=== PATIENT | female | born 1950 | race American Indian/Alaskan Native ===

== ENCOUNTER 2020-02-24 16:44 | Observation (INO) | payer MEDICARE, OTHER ==
--- NOTE | 2020-02-24 16:47 | Emergency Department Report ---
Blank Doc - Documentation Documentation: 69-year-old female that was sent by box truck owner operator for chest pain with radiation to left arm. This initial assessment/diagnostic orders/clinical plan/treatment(s) is/are subject to change based on patient's health status, clinical progression and re- assessment by fellow clinical providers in the ED. Further treatment and workup at subsequent clinical providers discretion. Patient/guardians urged not to elope from the ED as their condition may be serious if not clinically assessed and managed. Initial orders include: 1- Patient sent to MAIN ED for further evaluation and treatment 2- cardiac workup
[2020-02-24 17:17] LABS: Basophils % (Auto) 0.4 % (0.0-1.8); Eosinophils # (Auto) 0.3 K/mm3 (0.0-0.4); Eosinophils % (Auto) 2.1 % (0.0-4.3); Hematocrit 39.8 % (30.3-42.9); Hemoglobin 12.9 gm/dl (10.1-14.3); Lymphocytes # (Auto) 3.4 K/mm3 (1.2-5.4); Lymphocytes % (Auto) 26.6 % (13.4-35.0); Mean Corpuscular HGB Conc 32 % (30-34); Mean Corpuscular Volume 85 fl (79-97); Monocytes # (Auto) 0.7 K/mm3 (0.0-0.8); Monocytes % (Auto) 5.9 % (0.0-7.3); Platelet Count 521 K/mm3 (140-440); Red Cell Distribution Width 14.4 % (13.2-15.2)
[2020-02-24 17:25] LABS: INR 0.96 (0.87-1.13); Partial Thromboplastin Time 28.7 Sec. (24.2-36.6)
--- NOTE | 2020-02-24 17:36 | XRay Report ---
CHEST 2 VIEWS INDICATION / CLINICAL INFORMATION: Chest Pain. Intermittent shortness of breath. History of coronary artery disease, status post stentin g, hypertension and hyperlipidemia. COMPARISON: None available. FINDINGS: SUPPORT DEVICES: None. HEART / MEDIASTINUM: No significant abnormality. LUNGS / PLEURA: No significant pulmonary or pleural abnormality. No pneumothorax. ADDITIONAL FINDINGS: No significant additional findings. IMPRESSION: 1. No acute abnormality of the chest. Signer Name: Berny Carnes MD Signed: 02/24/2020 5:32 PM Workstation Name: [id number]
[2020-02-24 17:39] LABS: Alanine Aminotransferase 8 units/L (7-56); Albumin 4.2 g/dL (3.9-5); BUN/Creatinine Ratio 29; Blood Urea Nitrogen 32 mg/dL (7-17); Calcium 10.3 mg/dL (8.4-10.2); Hemolysis Index 0
--- NOTE | 2020-02-24 22:41 | Emergency Department Report ---
ED Chest Pain HPI - General Chief Complaint: Chest Pain Stated Complaint: CHEST PAIN PUI?: No Time Seen by Provider: 02/24/20 22:25 Source: patient Mode of arrival: Ambulatory Limitations: No Limitations - History of Present Illness Initial Comments: Patient is a 69-year-old female who presents emergency room with complaints of chest pain. Patient states her chest pain started yesterday. Patient states she woke up this morning with chest pain and went to her motor racer. Patient dates her motor racer Dr. White sent her here for evaluation. Patient states her chest pain is a 3 out of 10. Patient states the chest pain is worse with exertion and better with rest. Patient states that when she exerts herself she also gets short of breath. Patient states her shortness of breath resolves with rest. Patient states she has history of CAD With cardiac stents, hypertension hyperlipidemia and diabetes. Patient states she is on Plavix and aspirin. Patient denies recent travel. Patient denies recent international travel. Patient denies exposure to the novel coronavirus. Patient denies sick contacts. Patient denies fever and chills. Patient denies cough. Patient denies diarrhea. Patient denies coming in contact with anybody with symptoms of the novel coronavirus. MD Complaint: chest pain -: Sudden Onset: during rest Pain Location: substernal, left chest Pain Radiation: none Severity: mild, moderate Severity scale (0 -10): 3 Quality: sharp Consistency: intermittent Improves With: rest Worsens With: exertion re: dyspnea. denies: nausea, vomting, diaphoresis, sense of impending doom Other Symptoms: denies: cough, fever, syncope, rash, acid taste in mouth, leg swelling, palpitations, burping Treatments Prior to Arrival: none Aspirin use within the Past 7 Days: (1) Yes - Related Data On Oral Contraceptives: No Home Medications Medication Instructions Recorded Confirmed Last Taken Aspirin [Aspirin BABY CHEW TAB] 81 mg PO DAILY 04/27/13 05/11/13 05/10/13 81 mg Clopidogrel Bisulfate [Clopidogrel] 75 mg PO DAILY 04/27/13 05/11/13 05/10/13 75 mg Insulin NPH/Regular [NovoLIN 70/30] 40 units SQ BID 04/27/13 05/11/13 05/10/13 40 units Isosorbide Mononitrate [Isosorbide 60 mg PO DAILY 04/27/13 05/11/13 05/10/13 Mononitrate ER (IMDUR)] 60 mg Metoprolol [Lopressor TAB] 100 mg PO BID 04/27/13 05/11/13 05/10/13 100 mg NIFEdipine [NIFEdipine ER] 60 mg PO DAILY 04/27/13 05/11/13 05/10/13 60 mg Nitroglycerin [Nitrostat] 0.4 mg SL PRN PRN 04/27/13 05/11/13 05/10/13 Simvastatin 40 mg PO HS 04/27/13 05/11/13 05/10/13 40 mg lisinopriL [Lisinopril] 40 mg PO DAILY 04/27/13 05/11/13 05/10/13 40 mg Previous Rx's Medication Instructions Recorded Last Taken Type Ranolazine [Ranexa] 500 mg PO BID #60 tab.er.12h 05/12/13 Unknown Rx Allergies Allergy/AdvReac Type Severity Reaction Status Date / Time No Known Allergies Allergy Unverified 04/27/13 07:31 Heart Score - HEART Score History: Moderately suspicious EKG: Non-specific Age: > 65 Risk factors: > 3 risk factors or hx of atherosclerotic disease Troponin: < normal limit HEART Score: 6 ED Review of Systems ROS: Stated complaint: CHEST PAIN Other details as noted in HPI Constitutional: denies: chills, fever Eyes: denies: eye pain, eye discharge, vision change ENT: denies: ear pain, throat pain Respiratory: denies: cough, shortness of breath, wheezing Cardiovascular: as per HPI, chest pain, dyspnea on exertion. denies: palpitatio ns Endocrine: no symptoms reported Gastrointestinal: denies: abdominal pain, nausea, diarrhea Genitourinary: denies: urgency, dysuria, discharge Musculoskeletal: denies: back pain, joint swelling, arthralgia Skin: denies: rash, lesions Neurological: denies: headache, weakness, paresthesias Psychiatric: denies: anxiety, depression Hematological/Lymphatic: denies: easy bleeding, easy bruising ED Past Medical Hx - Past Medical History Previous Medical History?: Yes Hx Hypertension: Yes Hx Congestive Heart Failure: No Hx Diabetes: Yes Hx Arthritis: Yes Hx Asthma: No Hx COPD: No Hx HIV: No Additional medical history: high cholesterol - Surgical History Past Surgical History?: Yes Hx Coronary Stent: Yes - Family History Family history: no significant - Social History Smoking Status: Former Smoker Substance Use Type: None - Medications Home Medications: Home Medications Medication Instructions Recorded Confirmed Last Taken Type Aspirin [Aspirin BABY CHEW TAB] 81 mg PO DAILY 04/27/13 05/11/13 05/10/13 Histor y 81 mg Clopidogrel Bisulfate [Clopidogrel] 75 mg PO DAILY 04/27/13 05/11/13 05/10/13 History 75 mg Insulin NPH/Regular [NovoLIN 70/30] 40 units SQ BID 04/27/13 05/11/13 05/10/13 History 40 units Isosorbide Mononitrate [Isosorbide 60 mg PO DAILY 04/27/13 05/11/13 05/10/13 His tory Mononitrate ER (IMDUR)] 60 mg Metoprolol [Lopressor TAB] 100 mg PO BID 04/27/13 05/11/13 05/10/13 History 100 mg NIFEdipine [NIFEdipine ER] 60 mg PO DAILY 04/27/13 05/11/13 05/10/13 History 60 mg Nitroglycerin [Nitrostat] 0.4 mg SL PRN PRN 04/27/13 05/11/13 05/10/13 History Simvastatin 40 mg PO HS 04/27/13 05/11/13 05/10/13 History 40 mg lisinopriL [Lisinopril] 40 mg PO DAILY 04/27/13 05/11/13 05/10/13 History 40 mg Ranolazine [Ranexa] 500 mg PO BID #60 tab.er.12h 05/12/13 Unknown Rx ED Physical Exam - General Limitations: No Limitations General appearance: alert, in no apparent distress - Head Head exam: Present: atraumatic, normocephalic - Eye Eye exam: Present: normal appearance - ENT ENT exam: Present: mucous membranes moist - Neck Neck exam: Present: normal inspection - Respiratory Respiratory exam: Present: normal lung sounds bilaterally. Absent: respiratory distress - Cardiovascular Cardiovascular Exam: Present: regular rate, normal rhythm. Absent: systolic murmur, diastolic murmur, rubs, gallop - GI/Abdominal GI/Abdominal exam: Present: soft, normal bowel sounds - Rectal Rectal exam: Present: deferred - Extremities Exam Extremities exam: Present: normal inspection - Back Exam Back exam: Present: normal inspection - Neurological Exam Neurological exam: Present: alert, oriented X3 - Psychiatric Psychiatric exam: Present: normal affect, normal mood - Skin Skin exam: Present: warm, dry, intact, normal color. Absent: rash ED Course Vital Signs 02/24/20 16:51 Temperature 98.7 F Pulse Rate 77 Respiratory 18 Rate Blood Pressure 157/77 [Right] O2 Sat by Pulse 97 Oximetry - Reevaluation(s) Reevaluation #1: I discussed all results with patient. I discussed plan of care with patient. Patient agrees with plan of care and admission. Patient to be admitted to the hospitalist service. 02/24/20 22:58 - Consultations Consultation #1: Hospitalist consulted for admission. Hospitalist to admit patient. 02/24/20 22:59 WILLI score - Willi Score Age > 65: (1) Yes Aspirin use within the Past 7 Days: (1) Yes 3 or more CAD Risk Factors: (1) Yes 2 or more Angina events in past 24 hrs: (1) Yes Known CAD with more than 50% Stenosis: (0) No Elevated Cardiac Markers: (0) No ST Deviation Greater than 0.5mm: (0) No WILLI Score: 4 ED Medical Decision Making - Lab Data Result diagrams: 02/24/20 16:51 02/24/20 16:51 - EKG Data -: EKG Interpreted by Me EKG shows normal: sinus rhythm, axis, intervals, QRS complexes, ST-T waves Rate: normal - Radiology Data Radiology results: report reviewed, image reviewed interpreted by me: Chest x-ray: No pneumonia, no pneumothorax, no foreign body, no osseous finding s, no acute findings CHEST 2 VIEWS INDICATION / CLINICAL INFORMATION: Chest Pain. Intermittent shortness of breath. History of coronary artery disease, status post stenting, hypertension and hyperlipidemia. COMPARISON: None available. FINDINGS: SUPPORT DEVICES: None. HEART / MEDIASTINUM: No significant abnormality. LUNGS / PLEURA: No significant pulmonary or pleural abnormality. No pneumothorax. ADDITIONAL FINDINGS: No significant additional findings. IMPRESSION: 1. No acute abnormality of the chest. - Medical Decision Making Patient is a 69-year-old female that presents emergency room with complaints of chest pain and dyspnea on exertion. Patient states her symptoms started yesterday. Patient was sent here by her motor racer. Patient has a significant cardiac history. Patient has an elevated WILLI and heart score. Patient admitted to the hospital service for further evaluation and treatment and rule out ACS. Patient's motor racer consulted. Patient's labs are essentially unremarkable. Patient's troponins are negative. Patient's EKG does not show a STEMI. Patient's chest x-ray is negative. - Differential Diagnosis ACS, chest pain, CAD, hypertension, DOZIER Critical Care Time: Yes Critical care time in (mins) excluding proc time.: 35 Critical care attestation.: If time is entered above; I have spent that time in minutes in the direct care of this critically ill patient, excluding procedure time. Critical Care Time: 35 minutes ED Disposition Clinical Impression: DOZIER (dyspnea on exertion) CAD (coronary artery disease) Qualifiers: Coronary Disease-Associated Artery/Lesion type: [place] artery [place] vs. transplanted heart: [place] heart Associated angina: without angina Qualified Code(s): I25.10 - Atherosclerotic heart disease of [place] coronary artery without angina pectoris Chest pain Qualifiers: Chest pain type: unspecified Qualified Code(s): R07.9 - Chest pain, unspecified Disposition: DC-09 OP ADMIT IP TO THIS HOSP Is pt being admited?: Yes Does the pt Need Aspirin: No Condition: Critical Time of Disposition: 23:05
[2020-02-25] MEDS ORDERED: MORPHINE 2 MG/1 ML INJ IV PRN (00:06)
[2020-02-25] MEDS ORDERED: ONDANSETRON 4 MG/2 ML INJ IV PRN (00:07)
[2020-02-25] MEDS ORDERED: ACETAMINOPHEN 325 MG TAB PO PRN (00:07)
[2020-02-25] MEDS ORDERED: NITROGLYCERIN 0.4 MG TAB SUBL SL PRN ×2 (00:08→18:22)
[2020-02-25] MEDS: HEPARIN 5,000 UNIT/1 ML VIAL SUB-Q SCH ×3 (00:28→22:09)
[2020-02-25] MEDS ORDERED: HEPARIN 5,000 UNIT/1 ML VIAL ONE (00:29)
[2020-02-25] MEDS: NITROGLYCERIN 2% OINT 1 GM TP SCH ×4 (05:04→17:45)
--- NOTE | 2020-02-25 07:05 | History and Physical Report ---
History of Present Illness Date of examination: 02/24/20 Date of admission: 02/24/20 22:45 Chief complaint: Chief complaint is chest pain History of present illness: History of presenting illness, patient is a 69-year-old female who started having sharp chest pain located in the precordial area and radiating to the left upper extremity, pain started the night prior to presentation and was associated with shortness of breath ,diaphoresis,nausea or vomiting, but no history of cough, fever, chills or body aches and patient went to her doctor of optometry office for where she was sent to the emergency room for evaluation. Past History Past Medical History: CAD, diabetes, hypertension, hyperlipidemia Past Surgical History: Other (STENT) Social history: no significant social history Family history: no significant family history Medications and Allergies Allergies Allergy/AdvReac Type Severity Reaction Status Date / Time No Known Allergies Allergy Unverified 04/27/13 07:31 Home Medications Medication Instructions Recorded Confirmed Last Taken Type Aspirin [Aspirin BABY CHEW TAB] 81 mg PO DAILY 04/27/13 02/24/20 05/10/13 History 81 mg Clopidogrel Bisulfate [Clopidogrel] 75 mg PO DAILY 04/27/13 02/24/20 05/10/13 History 75 mg Insulin NPH/Regular [NovoLIN 70/30] 40 units SQ BID 04/27/13 02/24/20 05/10/13 History 40 units Isosorbide Mononitrate [Isosorbide 60 mg PO DAILY 04/27/13 02/24/20 05/10/13 History Mononitrate ER (IMDUR)] 60 mg NIFEdipine [NIFEdipine ER] 60 mg PO DAILY 04/27/13 02/24/20 05/10/13 History 60 mg Nitroglycerin [Nitrostat] 0.4 mg SL PRN PRN 04/27/13 02/24/20 05/10/13 History Simvastatin 40 mg PO HS 04/27/13 02/24/20 05/10/13 History 40 mg lisinopriL [Lisinopril] 40 mg PO DAILY 04/27/13 02/24/20 05/10/13 History 40 mg Active Meds: Active Medications Acetaminophen (Tylenol) 650 mg PO Q4H PRN PRN Reason: Headache Aspirin (Aspirin) 325 mg PO QDAY [facility] Heparin Sodium (Porcine) (Heparin) 5,000 unit SUB-Q Q12HR [facility] Last Admin: 02/25/20 00:28 Dose: 5,000 unit Documented by: Morphine Sulfate (Morphine) 2 mg IV Q4H PRN PRN Reason: Pain, Moderate (4-6) Nitroglycerin (Nitro-Bid 2%) 0.5 inch TP QIDNTG [facility]; Protocol Last Admin: 02/25/20 05:04 Dose: 0.5 inch Documented by: Nitroglycerin (Nitrostat) 0.4 mg SL .Q5MIN PRN PRN Reason: Chest Pain Ondansetron HCl (Zofran) 4 mg IV Q8H PRN PRN Reason: Nausea And Vomiting Pneumococcal Polyvalent Vaccine (Pneumovax 23) 0.5 ml IM .ONCE ONE Stop: 02/25/20 12:01 Review of Systems Constitutional: sweats, no weight loss, no weight gain, no fever, no chills, no night sweats, no anorexia, no fatigue, no weakness, no malaise Eyes: bilateral: other (NO BILATERAL EYE SYMPTOM) Ears, nose, mouth and throat: no deferred, no ear pain, no ear discharge, no decreased hearing, no nose pain, no nasal congestion, no nasal discharge, no sinus pressure, no dental pain, no mouth pain, no dysphagia, no hoarseness, no sore throat, no swelling in mouth, no swelling in throat, no headache Breasts: deferred Cardiovascular: chest pain, shortness of breath, no orthopnea, no palpitations, no rapid/irregular heart beat, no edema, no syncope, no lightheadedness Respiratory: shortness of breath, no cough, no cough with sputum, no hemoptysis, no dyspnea on exertion, no congestion, no wheezing, no pleurisy, no pain Gastrointestinal: nausea, vomiting, no abdominal pain, no diarrhea, no constipation, no change in bowel habits, no hematemesis, no coffee ground emesis, no loss of appetite Genitourinary Female: no dysmenorrhea, no pelvic pain, no flank pain, no menorrhagia, no dysuria, no urinary frequency, no urgency, no stress incontinence, no post void dribbling, no incomplete emptying Rectal: no pain Musculoskeletal: no neck stiffness, no neck pain, no low back pain Integumentary: no rash, no pruritis, no redness, no sores, no wounds, no jaundice, no boils, no bullae, no lesions, no darkening of skin, no depigmentation, no acne, no dryness Neurological: no head injury, no transient paralysis, no paralysis, no weakness, no parathesias, no numbness, no tingling, no seizures, no syncope, no tremors, no headaches, no migraines, no confusion Psychiatric: no anxiety Endocrine: no cold intolerance, no heat intolerance, no polyphagia, no excessive thirst, no polydipsia, no polyuria, no nocturia, no excessive sweating, no palpatations Hematologic/Lymphatic: no easy bruising, no easy bleeding, no lymphadenopathy Exam - Constitutional Vitals: Temp Pulse Resp BP Pulse Ox 98.0 F 68 18 144/67 100 02/25/20 03:52 02/25/20 03:52 02/25/20 03:52 02/25/20 03:52 02/25/20 03:52 General appearance: Present: no acute distress - EENT Eyes: Present: PERRL, EOM intact ENT: hearing intact, clear oral mucosa - Neck Neck: Present: supple, normal ROM - Respiratory Respiratory effort: normal - Cardiovascular Rhythm: regular Heart Sounds: Present: S1 & S2. Absent: gallop, systolic murmur, diastolic murmur, click - Extremities Extremities: no ischemia, No edema Peripheral Pulses: within normal limits - Abdominal General gastrointestinal: Present: soft, non-tender, non-distended. Absent: tender, distended, rigid, hepatomegaly, splenomegaly Female genitourinary: Present: deferred - Rectal Rectal Exam: deferred - Integumentary Integumentary: Present: clear, warm. Absent: dry, jaundice, rash - Musculoskeletal Musculoskeletal: strength equal bilaterally - Psychiatric Psychiatric: appropriate mood/affect HEART Score - HEART Score EKG: Non-specific Age: > 65 Risk factors: > 3 risk factors or hx of atherosclerotic disease Troponin: Troponin T < 0.010 ng/mL (0.00-0.029) 02/24/20 19:57 Troponin: < normal limit - Critical Actions Critical Actions: 4-6 pts:12-16.6% risk of adverse cardiac event. Should be admitted (PATIENT UNDERGOING WORK UP FOR CHEST PAIN) Results - Labs CBC & Chem 7: 02/24/20 16:51 02/24/20 16:51 Labs: Laboratory Last Values WBC 12.7 K/mm3 (4.5-11.0) H 02/24/20 16:51 RBC 4.70 M/mm3 (3.65-5.03) 02/24/20 16:51 Hgb 12.9 gm/dl (10.1-14.3) 02/24/20 16:51 Hct 39.8 % (30.3-42.9) 02/24/20 16:51 MCV 85 fl (79-97) 02/24/20 16:51 MCH 28 pg (28-32) 02/24/20 16:51 MCHC 32 % (30-34) 02/24/20 16:51 RDW 14.4 % (13.2-15.2) 02/24/20 16:51 Plt Count 521 K/mm3 (140-440) H 02/24/20 16:51 Lymph % (Auto) 26.6 % (13.4-35.0) 02/24/20 16:51 [place] % (Auto) 5.9 % (0.0-7.3) 02/24/20 16:51 Eos % (Auto) 2.1 % (0.0-4.3) 02/24/20 16:51 Baso % (Auto) 0.4 % (0.0-1.8) 02/24/20 16:51 Lymph # (Auto) 3.4 K/mm3 (1.2-5.4) 02/24/20 16:51 [place] # (Auto) 0.7 K/mm3 (0.0-0.8) 02/24/20 16:51 Eos # (Auto) 0.3 K/mm3 (0.0-0.4) 02/24/20 16:51 Baso # (Auto) 0.0 K/mm3 (0.0-0.1) 02/24/20 16:51 Seg Neutrophils % 65.0 % (40.0-70.0) 02/24/20 16:51 Seg Neutrophils # 8.3 K/mm3 (1.8-7.7) H 02/24/20 16:51 PT 12.9 Sec. (12.2-14.9) 02/24/20 16:51 INR 0.96 (0.87-1.13) 02/24/20 16:51 APTT 28.7 Sec. (24.2-36.6) 02/24/20 16:51 Sodium 140 mmol/L (137-145) 02/24/20 16:51 Potassium 4.2 mmol/L (3.6-5.0) 02/24/20 16:51 Chloride 102.2 mmol/L (98-107) 02/24/20 16:51 Carbon Dioxide 22 mmol/L (22-30) 02/24/20 16:51 Anion Gap 20 mmol/L 02/24/20 16:51 BUN 32 mg/dL (7-17) H 02/24/20 16:51 Creatinine 1.1 mg/dL (0.6-1.2) 02/24/20 16:51 Estimated GFR 60 ml/min 02/24/20 16:51 BUN/Creatinine Ratio 29 % 02/24/20 16:51 Glucose 156 mg/dL (65-100) H 02/24/20 16:51 Calcium 10.3 mg/dL (8.4-10.2) H 02/24/20 16:51 Magnesium 2.10 mg/dL (1.7-2.3) 02/24/20 16:51 Total Bilirubin 0.30 mg/dL (0.1-1.2) 02/24/20 16:51 AST 13 units/L (5-40) 02/24/20 16:51 ALT 8 units/L (7-56) 02/24/20 16:51 Alkaline Phosphatase 134 units/L (35-129) H 02/24/20 16:51 Troponin T < 0.010 ng/mL (0.00-0.029) 02/24/20 19:57 Total Protein 7.9 g/dL (6.3-8.2) 02/24/20 16:51 Albumin 4.2 g/dL (3.9-5) 02/24/20 16:51 Albumin/Globulin Ratio 1.1 % 02/24/20 16:51 Jacobs/IV: Voiding Method Toilet IV Catheter Type [Left Wrist] Peripheral IV Assessment and Plan - Patient Problems (1) Chest pain Current Visit: Yes Status: Acute Qualifiers: Chest pain type: unspecified Qualified Code(s): R07.9 - Chest pain, unspecified Plan to address problem: 1. TELEMETRY OBSERVATION 2. SERIAL CARDIAC ENZYMES 3. CARDIOLOGY CONSULT 4. I.V MORPHINE FOR PAIN 5. I.V ZOFRAN FOR NAUSEA AND VOMITING 6. NITROPASTE 7. ASPIRIN PO 8. TYLENOL FOR HEADACHE AND FEVER 9. SUBCUT HEPARIN FOR DVT PROPHYLAXIS
[2020-02-25 07:19] LABS: Creatine Kinase MB 1.7 ng/mL (0.0-4.0)
--- NOTE | 2020-02-25 08:46 | Consultation ---
<LYNDON DILLARD - Last Filed: 02/25/20 10:00> History of Present Illness Consult date: 02/25/20 Consult reason: chest pain History of present illness: Patient is a 69-year old woman with history of coronary artery disease. A cardiac cath in 2012 showed patient stents in proximal and mid LAD and patient mid Cx stent. Recommended medical therapy for small vessel disease. Serial stress thallium stress test, latest done in 2018, were negative. Patient was sent from our office and admitted with chest pain. Denies chest pain on exertion. Denies unusual shortness of breath. Chest x-ray was negative. Troponin T measurements are normal thus far. An ECG done shows sinus rhythm with non-specific Twave abnormalities. Past History Past Medical History: CAD, diabetes, hypertension, hyperlipidemia Social history: no significant social history Family history: no significant family history Medications and Allergies Allergies Allergy/AdvReac Type Severity Reaction Status Date / Time No Known Allergies Allergy Unverified 04/27/13 07:31 Home Medications Medication Instructions Recorded Confirmed Last Taken Type Aspirin [Aspirin BABY CHEW TAB] 81 mg PO DAILY 04/27/13 02/24/20 05/10/13 Histo ry 81 mg Clopidogrel Bisulfate [Clopidogrel] 75 mg PO DAILY 04/27/13 02/24/20 05/10/13 History 75 mg Insulin NPH/Regular [NovoLIN 70/30] 40 units SQ BID 04/27/13 02/24/20 05/10/13 History 40 units Isosorbide Mononitrate [Isosorbide 60 mg PO DAILY 04/27/13 02/24/20 05/10/13 Hi story Mononitrate ER (IMDUR)] 60 mg NIFEdipine [NIFEdipine ER] 60 mg PO DAILY 04/27/13 02/24/20 05/10/13 History 60 mg Nitroglycerin [Nitrostat] 0.4 mg SL PRN PRN 04/27/13 02/24/20 05/10/13 History Simvastatin 40 mg PO HS 04/27/13 02/24/20 05/10/13 History 40 mg lisinopriL [Lisinopril] 40 mg PO DAILY 04/27/13 02/24/20 05/10/13 History 40 mg Active Meds: Active Medications Acetaminophen (Tylenol) 650 mg PO Q4H PRN PRN Reason: Headache Aspirin (Aspirin) 325 mg PO QDAY DB Heparin Sodium (Porcine) (Heparin) 5,000 unit SUB-Q Q12HR [facility] Last Admin: 02/25/20 00:28 Dose: 5,000 unit Documented by: Morphine Sulfate (Morphine) 2 mg IV Q4H PRN PRN Reason: Pain, Moderate (4-6) Nitroglycerin (Nitro-Bid 2%) 0.5 inch TP QIDNTG [facility]; Protocol Last Admin: 02/25/20 05:04 Dose: 0.5 inch Documented by: Nitroglycerin (Nitrostat) 0.4 mg SL .Q5MIN PRN PRN Reason: Chest Pain Ondansetron HCl (Zofran) 4 mg IV Q8H PRN PRN Reason: Nausea And Vomiting Pneumococcal Polyvalent Vaccine (Pneumovax 23) 0.5 ml IM .ONCE ONE Stop: 02/25/20 12:01 Physical Examination Vital Signs Temp Pulse Resp BP Pulse Ox 98.7 F 77 18 157/77 97 02/24/20 16:51 02/24/20 16:51 02/24/20 16:51 02/24/20 16:51 02/24/20 16:51 General appearance: no acute distress HEENT: Positive: PERRL Neck: Positive: trachea midline Cardiac: Positive: Reg Rate and Rhythm Results 02/24/20 16:51 02/24/20 16:51 Cardiac Enzymes 02/24/20 02/25/20 Range/Units 16:51 05:59 AST 13 (5-40) units/L CK-MB (CK-2) 1.7 (0.0-4.0) ng/mL Coagulation 02/24/20 Range/Units 16:51 PT 12.9 (12.2-14.9) Sec. INR 0.96 (0.87-1.13) APTT 28.7 (24.2-36.6) Sec. CBC 02/24/20 Range/Units 16:51 WBC 12.7 H (4.5-11.0) K/mm3 RBC 4.70 (3.65-5.03) M/mm3 Hgb 12.9 (10.1-14.3) gm/dl Hct 39.8 (30.3-42.9) % Plt Count 521 H (140-440) K/mm3 Lymph # (Auto) 3.4 (1.2-5.4) K/mm3 [place] # (Auto) 0.7 (0.0-0.8) K/mm3 Eos # (Auto) 0.3 (0.0-0.4) K/mm3 Baso # (Auto) 0.0 (0.0-0.1) K/mm3 Comprehensive Metabolic Panel 02/24/20 Range/Units 16:51 Sodium 140 (137-145) mmol/L Potassium 4.2 (3.6-5.0) mmol/L Chloride 102.2 (98-107) mmol/L Carbon Dioxide 22 (22-30) mmol/L BUN 32 H (7-17) mg/dL Creatinine 1.1 (0.6-1.2) mg/dL Glucose 156 H (65-100) mg/dL Calcium 10.3 H (8.4-10.2) mg/dL AST 13 (5-40) units/L ALT 8 (7-56) units/L Alkaline Phosphatase 134 H (35-129) units/L Total Protein 7.9 (6.3-8.2) g/dL Albumin 4.2 (3.9-5) g/dL Assessment and Plan - Patient Problems (1) Chest pain Current Visit: Yes Status: Acute Qualifiers: Plan to address problem: Further ischemic evaluation with cardiac catheterization and diagnostic coronary angiography (2) CAD (coronary artery disease) Current Visit: Yes Status: Chronic Qualifiers: <HARSHA FONG - Last Filed: 02/25/20 10:31> Medications and Allergies Active Meds: Active Medications Acetaminophen (Tylenol) 650 mg PO Q4H PRN PRN Reason: Headache Aspirin (Aspirin) 325 mg PO QDAY [facility] Heparin Sodium (Porcine) (Heparin) 5,000 unit SUB-Q Q12HR [facility] Last Admin: 02/25/20 00:28 Dose: 5,000 unit Documented by: Morphine Sulfate (Morphine) 2 mg IV Q4H PRN PRN Reason: Pain, Moderate (4-6) Nitroglycerin (Nitro-Bid 2%) 0.5 inch TP QIDNTG [facility]; Protocol Last Admin: 02/25/20 05:04 Dose: 0.5 inch Documented by: Nitroglycerin (Nitrostat) 0.4 mg SL .Q5MIN PRN PRN Reason: Chest Pain Ondansetron HCl (Zofran) 4 mg IV Q8H PRN PRN Reason: Nausea And Vomiting Pneumococcal Polyvalent Vaccine (Pneumovax 23) 0.5 ml IM .ONCE ONE Stop: 02/25/20 12:01 Physical Examination Vital Signs Temp Pulse Resp BP Pulse Ox 98.7 F 77 18 157/77 97 02/24/20 16:51 02/24/20 16:51 02/24/20 16:51 02/24/20 16:51 02/24/20 16:51 Results 02/24/20 16:51 02/24/20 16:51 Cardiac Enzymes 02/24/20 02/25/20 Range/Units 16:51 05:59 AST 13 (5-40) units/L CK-MB (CK-2) 1.7 (0.0-4.0) ng/mL Coagulation 02/24/20 Range/Units 16:51 PT 12.9 (12.2-14.9) Sec. INR 0.96 (0.87-1.13) APTT 28.7 (24.2-36.6) Sec. CBC 02/24/20 Range/Units 16:51 WBC 12.7 H (4.5-11.0) K/mm3 RBC 4.70 (3.65-5.03) M/mm3 Hgb 12.9 (10.1-14.3) gm/dl Hct 39.8 (30.3-42.9) % Plt Count 521 H (140-440) K/mm3 Lymph # (Auto) 3.4 (1.2-5.4) K/mm3 [place] # (Auto) 0.7 (0.0-0.8) K/mm3 Eos # (Auto) 0.3 (0.0-0.4) K/mm3 Baso # (Auto) 0.0 (0.0-0.1) K/mm3 Comprehensive Metabolic Panel 02/24/20 Range/Units 16:51 Sodium 140 (137-145) mmol/L Potassium 4.2 (3.6-5.0) mmol/L Chloride 102.2 (98-107) mmol/L Carbon Dioxide 22 (22-30) mmol/L BUN 32 H (7-17) mg/dL Creatinine 1.1 (0.6-1.2) mg/dL Glucose 156 H (65-100) mg/dL Calcium 10.3 H (8.4-10.2) mg/dL AST 13 (5-40) units/L ALT 8 (7-56) units/L Alkaline Phosphatase 134 H (35-129) units/L Total Protein 7.9 (6.3-8.2) g/dL Albumin 4.2 (3.9-5) g/dL Assessment and Plan PT IS EXPERIENCING CP AT REST SUSPICIOUS FOR UNSTABLE ANGINA STRESS TESTING COULD BE RISKY. RECOMMEND CATH GIVEN THE Hx OF CAD WITH CP AT REST PT AGREES TO THE PROCEDURE
[2020-02-25] MEDS ORDERED: ASPIRIN 325 MG TAB PO SCH (10:00)
[2020-02-25] MEDS ORDERED: fentaNYL 100 MCG/2 ML INJ ONE (10:12)
[2020-02-25] MEDS ORDERED: LIDOCAINE (2%) 20 MG/1 ML VIAL 20 ML MDV INFILTRATI ONE (10:12)
[2020-02-25] MEDS ORDERED: MIDAZOLAM 2 MG/2 ML INJ ONE (10:12)
[2020-02-25] MEDS ORDERED: HEPARIN/NS 5000 UNIT/500ML 1,000 ML IR ONE (10:12)
[2020-02-25] MEDS ORDERED: HEPARIN 10,000 UNITS/10 ML VIAL ONE (10:13)
[2020-02-25] MEDS ORDERED: NITROGLYCERIN SYRINGE 0 ML ONE (10:14)
[2020-02-25] MEDS ORDERED: VERAPAMIL 5 MG/2 ML INJ ONE (10:14)
[2020-02-25] MEDS ORDERED: SODIUM CHLORIDE 0.9% 500 ML 500 ML ONE (10:25)
[2020-02-25] MEDS ORDERED: traMADol 50 MG TAB PO PRN (11:11)
[2020-02-25] MEDS ORDERED: PNEUMOCOCCAL 23 Valent 0.5 ML VIAL IM ONE (12:00)
--- NOTE | 2020-02-25 12:05 | Discharge Summary ---
Providers - Providers Date of Admission: 02/24/20 22:45 Date of discharge: 02/25/20 Attending physician: YAMILE GARCIA 02/24/20 22:46 Consult to Physician [CONS] Routine Comment: Consulting Provider: ARMANDO VERGARA Physician Instructions: Reason For Exam: chest pain 02/25/20 11:11 Consult to Cardiac Rehabilitation [CONS] Routine Reason For Exam: Cardiac Rehab Evaluation Primary care physician: ESPERANZA NELSON MD Hospitalization Condition: Good Pertinent studies: Cardiac catheterization unremarkable patent stents Hospital course: 69-year-old female with a history of hypertension coronary artery disease presents with persistent atypical chest pain. Patient had last cardiac catheterization 2012 which showed patent stents in the LAD and mid circumflex. Patient also had unremarkable stress thallium in 2018. 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 Upon presentation patient had chest x-ray was negative, troponin was negative, EKG unremarkable no new acute changes. And a cardiac catheterization that was unremarkable. Patient stable for discharge. Disposition: TO HOME OR SELFCARE - Discharge Diagnoses (1) Chest pain Status: Acute Qualifiers: Chest pain type: unspecified Qualified Code(s): R07.9 - Chest pain, unspecified (2) CAD (coronary artery disease) Status: Chronic Qualifiers: Coronary Disease-Associated Artery/Lesion type: [place] artery [place] vs. transplanted heart: [place] heart Associated angina: without angina Qualified Code(s): I25.10 - Atherosclerotic heart disease of [place] coronary artery without angina pectoris (3) Diabetes mellitus type 1 Status: Chronic Comment: Resume home medications. (4) Hypertension Status: Chronic Comment: 145/62 resume home medications and titrate accordingly. Core Measure Documentation - Palliative Care Palliative Care/ Comfort Measures: Not Applicable - Core Measures Any of the following diagnoses?: none Exam - Constitutional Vitals: Temp Pulse Resp BP Pulse Ox 98.5 F 84 20 145/62 100 02/25/20 08:49 02/25/20 08:49 02/25/20 08:49 02/25/20 08:49 02/25/20 08:49 General appearance: Present: no acute distress, well-nourished - EENT Eyes: Present: PERRL ENT: hearing intact, clear oral mucosa - Neck Neck: Present: supple, normal ROM - Respiratory Respiratory effort: normal Respiratory: bilateral: CTA - Cardiovascular Heart Sounds: Present: S1 & S2. Absent: rub, click - Extremities Extremities: pulses symmetrical, No edema Peripheral Pulses: within normal limits - Abdominal General gastrointestinal: Present: soft, non-tender, non-distended, normal bowel sounds Female genitourinary: Present: normal - Integumentary Integumentary: Present: clear, warm, dry - Musculoskeletal Musculoskeletal: gait normal, strength equal bilaterally - Psychiatric Psychiatric: appropriate mood/affect, intact judgment & insight - Neurologic Neurologic: CNII-XII intact, moves all extremities Plan Activity: no restrictions Weight Bearing Status: Full Weight Bearing Diet: diabetic
[2020-02-25 15:43] LABS: Creatine Kinase MB 1.6 ng/mL (0.0-4.0)
[2020-02-25] MEDS ORDERED: NON-FORMULARY EACH (Nifedipine [Nifedipine Er] 60 MG) PO SCH (18:30)
[2020-02-25] MEDS ORDERED: NON-FORMULARY EACH (Simvastatin [Simvastatin] 40 MG) PO SCH (22:00)
[2020-02-25] MEDS ORDERED: PRAVASTATIN 80 MG TAB PO SCH (22:00)
[2020-02-25] MEDS: PANTOPRAZOLE 40 MG INJ IV SCH (22:06)
[2020-02-25] MEDS: NIFEdipine XL 60 MG TAB PO SCH (22:08)
[2020-02-25] MEDS: LISINOPRIL 40 MG TAB PO SCH (22:08)
[2020-02-25] MEDS: CLOPIDOGREL 75 MG TAB PO SCH (22:08)
[2020-02-25] MEDS: INSULIN NPH/REGULAR 70/30 INJ SUB-Q SCH (23:16)
[2020-02-26] MEDS: PANTOPRAZOLE 40 MG INJ IV SCH (09:52)
[2020-02-26] MEDS: CLOPIDOGREL 75 MG TAB PO SCH (09:52)
[2020-02-26] MEDS: HEPARIN 5,000 UNIT/1 ML VIAL SUB-Q SCH (09:52)
[2020-02-26] MEDS: LISINOPRIL 40 MG TAB PO SCH (09:52)
[2020-02-26] MEDS: NIFEdipine XL 60 MG TAB PO SCH (09:52)
[2020-02-26] MEDS: INSULIN NPH/REGULAR 70/30 INJ SUB-Q SCH (09:53)
[2020-02-26] MEDS ORDERED: ASPIRIN 81 MG TAB CHEW PO SCH (10:00)
[2020-02-26 10:07] VITALS: BP 106/60
--- NOTE | 2020-02-26 10:27 | Progress Note ---
Assessment and Plan - Patient Problems (1) Chest pain Current Visit: Yes Status: Acute Qualifiers: Chest pain type: unspecified Qualified Code(s): R07.9 - Chest pain, unspecified (2) Diabetes mellitus type 1 Current Visit: No Status: Chronic (3) Hypertension Current Visit: No Status: Chronic (4) Hyperlipidemia Current Visit: Yes Status: Acute Subjective Date of service: 02/26/20 Interval history: NO CP TODAY Objective Vital Signs Temp Pulse Resp BP Pulse Ox 02/26/20 09:52 106/60 02/26/20 08:13 97.8 F 80 18 106/60 98 02/26/20 05:03 97.6 F 69 20 146/62 97 02/26/20 04:20 73 02/26/20 00:40 98.4 F 73 20 151/71 99 02/25/20 22:06 79 151/63 02/25/20 21:03 98.5 F 78 20 151/63 99 02/25/20 18:00 187/88 02/25/20 17:58 166/76 02/25/20 17:45 77 168/70 02/25/20 17:30 219/89 02/25/20 17:00 157/69 02/25/20 16:30 152/65 02/25/20 16:00 172/70 02/25/20 15:35 78 02/25/20 15:31 152/67 02/25/20 15:26 97.9 F 82 20 117/78 98 02/25/20 15:01 78 105/70 97 02/25/20 14:46 79 115/78 96 02/25/20 14:33 79 94/55 96 02/25/20 14:16 82 97/58 96 02/25/20 14:02 79 98 02/25/20 13:46 82 106/73 97 02/25/20 13:00 84 171/76 96 02/25/20 12:45 79 177/72 98 02/25/20 12:30 81 163/73 99 02/25/20 12:15 76 149/75 98 02/25/20 12:00 75 170/71 99 02/25/20 11:59 77 171/75 02/25/20 11:58 76 171/75 98 - Physical Examination General: Other (OBESE) HEENT: Positive: PERRL Neck: Positive: trachea midline Cardiac: Positive: Reg Rate and Rhythm Lungs: Positive: clear to auscultation Abdomen: Positive: Unremarkable Extremities: Present: normal - Labs and Meds Cardiac Enzymes 02/25/20 Range/Units 14:55 CK-MB (CK-2) 1.6 (0.0-4.0) ng/mL
--- NOTE | 2020-02-26 13:19 | Event Note ---
Date: 02/26/20 Patient did not go home yesterday for episode of chest pain which is resolved now. Most likely was secondary to gastritis.
--- NOTE | 2020-02-26 13:29 | Discharge Summary ---
Providers - Providers Date of Admission: 02/24/20 22:45 Date of discharge: 02/26/20 Attending physician: YAMILE GARCIA 02/24/20 22:46 Consult to Physician [CONS] Routine Comment: Consulting Provider: ARMANDO VERGARA Physician Instructions: Reason For Exam: chest pain 02/25/20 11:11 Consult to Cardiac Rehabilitation [CONS] Routine Reason For Exam: Cardiac Rehab Evaluation Primary care physician: ESPERANZA NELSON MD Hospitalization Condition: Good Hospital course: 69-year-old female with a history of hypertension coronary artery disease presents with persistent atypical chest pain. Patient had last cardiac catheterization 2012 which showed patent stents in the LAD and mid circumflex. Patient also had unremarkable stress thallium in 2018. Patient presented to the card dealer office with symptoms consistent with her previous chest pain and therefore was told to go to the ER for work-up. Upon presentation patient had chest x-ray was negative, troponin was negative, EKG unremarkable no new acute changes. And a cardiac catheterization that was unremarkable. Patient stable for discharge. Disposition: DC-01 TO HOME OR SELFCARE Disposition: DC-01 TO HOME OR SELFCARE - Discharge Diagnoses (1) Chest pain Status: Acute Qualifiers: Chest pain type: unspecified Qualified Code(s): R07.9 - Chest pain, unspecified (2) CAD (coronary artery disease) Status: Chronic Qualifiers: Coronary Disease-Associated Artery/Lesion type: [place] artery [place] vs. transplanted heart: [place] heart Associated angina: without angina Qualified Code(s): I25.10 - Atherosclerotic heart disease of [place] coronary artery without angina pectoris (3) Diabetes mellitus type 1 Status: Chronic Comment: Resume home medications. (4) Hypertension Status: Chronic Comment: 145/62 resume home medications and titrate accordingly. Core Measure Documentation - Palliative Care Palliative Care/ Comfort Measures: Not Applicable - Core Measures Any of the following diagnoses?: none Exam - Constitutional Vitals: Temp Pulse Resp BP Pulse Ox 97.8 F 80 18 106/60 98 02/26/20 08:13 02/26/20 08:13 02/26/20 08:13 02/26/20 09:52 02/26/20 08:13 General appearance: Present: no acute distress, well-nourished - EENT Eyes: Present: PERRL ENT: hearing intact, clear oral mucosa - Neck Neck: Present: supple, normal ROM - Respiratory Respiratory effort: normal Respiratory: bilateral: CTA - Cardiovascular Heart Sounds: Present: S1 & S2. Absent: rub, click - Extremities Extremities: pulses symmetrical, No edema Peripheral Pulses: within normal limits - Abdominal General gastrointestinal: Present: soft, non-tender, non-distended, normal bowel sounds Female genitourinary: Present: normal - Integumentary Integumentary: Present: clear, warm, dry - Musculoskeletal Musculoskeletal: gait normal, strength equal bilaterally - Psychiatric Psychiatric: appropriate mood/affect, intact judgment & insight - Neurologic Neurologic: CNII-XII intact, moves all extremities Plan Activity: no restrictions Weight Bearing Status: Full Weight Bearing Diet: low cholesterol, low salt Follow up with: ESPERANZA NELSON MD [Primary Care Provider] - 7 Days Prescriptions: Pravastatin [Pravachol] 80 mg PO QHS #30 tablet NIFEdipine XL [Procardia Xl] 60 mg PO QDAY #30 tablet
--- NOTE | 2020-02-27 23:29 | Cardiac Catherization Report ---
HISTORY: The patient is a 69-year-old female with multiple medical problems including a history of known coronary artery disease and she presented with recurrent episodes of chest pain at rest, suggestive of unstable angina. It was felt that it was too risky to do a stress test with prolonged chest pain at rest, so coronary angiography was recommended. PREPROCEDURE DIAGNOSIS: Unstable angina. POSTPROCEDURE DIAGNOSIS: Unstable angina. SEDATION: Intravenous fentanyl/ COMPLICATIONS: None. TISSUE SAMPLES: None. ESTIMATED BLOOD LOSS: 5-10 mL. PROCEDURE: Left heart catheterization, ventriculography and coronary angiography via the right femoral artery using 5-Wolof Jaclyn catheters and a pigtail catheter. COMPLICATIONS: None. HEMODYNAMICS: Central aortic pressure 164/74. Left ventricular pressure 163 with an end-diastolic pressure of 28. ANGIOGRAPHIC RESULTS: 1. Left ventricle: The ventriculogram reveals a normal sized left ventricle, which is hypercontractile. The ejection fraction is approximately 65% and there is little evidence of left ventricular hypertrophy. 2. Right coronary artery: This is a dominant vessel and it is diffusely irregular and diffusely narrowed with a 50% stenosis in the mid portion and a 50% stenosis in the midportion of the PDA branch. 3. Left coronary artery: This vessel is also diffusely irregular and diffusely narrowed. The left main is free of remarkable disease. The circumflex has a stenosis of approximately 60-70% in the mid portion. The LAD contains a 50% stenosis in the mid portion, this vessel is less than 2.5 mm in diameter. The diagonal branch also contains a 60-70% stenosis in its midportion. FINAL IMPRESSION: 1. Unstable angina with diffusely narrowed coronaries in 2 discrete lesions in the 60-70% range. The patient will be given a trial of medical therapy. Left ventricular function is normal. 2. Hypertension with left ventricular hypertrophy. PLAN: Aggressive medical therapy, CAD risk factor modification, consider GI workup for recurrence of chest pain once antianginals were maximized. Thank you for this consultation. JOB# [id number] YOLANDA/SHYLA
== END 2020-02-26 15:00 | disposition home or self-care (01) ==
LOC: ED 16:44 → 4A 22:45
PROVIDERS: ADMIT Internal Medicine; ATTEND Internal Medicine
DX: I25.10 Atherosclerotic heart disease of native coronary artery without angina pectoris (principal); R07.89 Other chest pain; I10 Essential (primary) hypertension; R06.00 Dyspnea, unspecified; E10.9 Type 1 diabetes mellitus without complications; E78.5 Hyperlipidemia, unspecified; Z95.1 Presence of aortocoronary bypass graft; Z79.82 Long term (current) use of aspirin; Z23 Encounter for immunization
CPT/HCPCS: 36415; 71046; 80053; 82550; 82553; 82962; 83735; 84484; 85025; 85610; 85730; 90732; 93005; 93458; 96372; 96374; 96376; 99291; A9270; C9113; G0009; G0378; J1644; J2250; J3010; J7040; 90471; J1815; Q9967

== ENCOUNTER 2021-01-25 12:14 | Outpatient (CLI) | payer MEDICARE | END 2021-01-25 12:15 | disposition home or self-care (01) | LOC: MAMMO 12:14 | PROVIDERS: ATTEND Family Medicine | DX: Z12.31 Encounter for screening mammogram for malignant neoplasm of breast (principal) | CPT/HCPCS: 77067 ==